=== PATIENT | female | born 1990 | race Caucasian/White ===

== ENCOUNTER 2019-12-13 10:52 | Emergency (ER) | payer OTHER, SELFPAY ==
--- NOTE | ~2019-12-13 | CT_ITS ---
EXAMINATION: CT abdomen pelvis wo con DATE: 12/13/2019 13:19 INDICATION: Left flank pain. Left lower quadrant abdominal pain. TECHNIQUE: Computed tomography (CT) of the abdomen and pelvis was performed without intravenous contr ast. Automated exposure control and iterative reconstruction technique were employed. The dose-length product was 1632.50 mGy-cm. COMPARISON: CT abdomen and pelvis 07/27/2016 FINDINGS: The visualized portions of the lung bases are clear without pneumonia or pleural effusion. The heart size is normal. No pericardial effusion. The liver and gallbladder are normal. There are ch anges of cholecystectomy. The pancreas, adrenal glands, and kidneys are normal. There is no urolithia sis. There are no dilated loops of bowel. The appendix is normal. There are no pathologically enlarge d lymph nodes. There is no free intraperitoneal fluid. There is mild thoracic spondylosis and moderat e lumbar spondylosis. There is mild chronic anterior wedging of multiple thoracic vertebral bodies. IMPRESSION: 1. No etiology for the patient's symptoms. Reviewed, dictated and finalized at location A. [employer]
[2019-12-13 11:23] VITALS: BP 151/88; PULSE 88; RESP 16; TEMP 37.2; O2SAT 98
[2019-12-13 11:37] LABS: Basophils Absolute Auto 0.1 K/mm3 (0.0-0.1); Basophils Percent Auto 0.7 % (0.2-1.2); Eosinophils Absolute Auto 0.2 K/mm3 (0-0.3); Hematocrit 43.4 % (37.0-47.0); Hemoglobin 13.9 g/dL (12.0-15.0); Immature Granulocyte Absolute 0.05 K/mm3 (0.00-0.031); Immature Granulocyte Percent A 0.5 % (0-0.5); Lymphocytes Absolute Auto 2.47 K/mm3 (0.9-3.2); Lymphocytes Percent Auto 24.4 % (18.3-44.2); Mean Corpuscular Hemoglobin 28.8 pg (26-34); Mean Corpuscular Volume 89.9 fl (80-100); Mean Platelet Volume 11.4 fl (7.4-10.4); Monocytes Absolute Auto 0.6 K/mm3 (0.1-0.6); Monocytes Percent Auto 6.1 % (2.6-8.5); Neutrophils Absolute Auto 6.7 K/mm3 (1.3-6.7); Neutrophils Percent Auto 66.3 % (45.5-73.1); Platelet Count Result 253 k/mm3 (150-375); Red Blood Count 4.83 M/mm3 (4.2-5.4); Red Cell Distribution Width 13.8 % (11.5-14.5); White Blood Count 10.1 K/mm3 (4.5-10.0)
[2019-12-13 11:49] LABS: Blood Urea Nitrogen 12 mg/dL (7-17); Calcium 8.9 mg/dL (8.4-10.2); Carbon Dioxide 23 mmol/L (22-30); Chloride 101 mmol/L (98-107); Estimated CRCL calculation 170 ml/min; Estimated Glomerular Filt Rate > 60; Glucose 95 mg/dL (65-105); Potassium 4.2 mmol/L (3.4-5.0); Sodium 138 mmol/L (137-145)
--- NOTE | 2019-12-13 11:56 | PC.NURSE ---
UA ordered at triage
[2019-12-13 12:15] LABS: Add Urine Microscopic? YES; Appearance Urine Cloudy (Clear); Bacteria Urine 2+ /hpf; Bilirubin Urine Negative (Negative); Blood Urine Negative (Negative); Color Urine Yellow (Yellow); Glucose Urine UA Negative (Negative); Ketones Urine Negative (Negative); Leukocyte Esterase Ur Negative LEU/UL (Negative); Mucus Urine Few /lpf; Nitrate Urine Negative (Negative); Protein Urine Negative (Negative); Specific Grav Ur 1.023 (1.001-1.035); Squamous Epithelial Cell Urine Many /hpf (Few); Urobilinogen Urine Negative mg/dL (<2.0)
[2019-12-13 13:00] VITALS: BP 148/77; PULSE 93; RESP 16; TEMP 37.1; O2SAT 99
--- NOTE | 2019-12-13 14:19 | ED.ABDPAIN ---
HPI - Abdominal Pain General Chief Complaint: Abdominal Pain Stated Complaint: flank pain Time Seen by Provider: 12/13/19 12:45 Source: patient Mode of arrival: ambulatory Limitations: no limitations History of Present Illness HPI narrative: Patient presents with chief complaint of left flank pain that radiates into the groin area over the past 4 days. Patient states she felt that it may have been a muscle but states it persisted she called her primary care provider and they instructed her to come to the emergency department for further evaluation. Patient states she has noted that her urine is a bit cloudy but she denies any dysuria or hematuria. Patient denies any vaginal bleeding or discharge. Patient denies due to abstinence. She also denies concern for venereal or sexually transmitted diseases. Patient denies fever, nausea, vomiting, diarrhea, constipation or abdominal pain. Related Data Allergies Allergy/AdvReac Type Severity Reaction Status Date / Time codeine Allergy Mild codeine Verified 12/13/19 14:05 ([id number]) ciprofloxacin Allergy Unknown ciprofloxacin Verified 12/13/19 14:05 ([id number]) Review of Systems Review of Systems: Narrative: CONSTITUTIONAL: Denies fever, chills, or sweats. EYES: Denies visual changes, redness, or discharge. ENT: Denies rhinorrhea, congestion, sore throat, or otalgia. CARDIOVASCULAR: Denies chest pain, palpitations, or edema. RESPIRATORY: Denies cough or dyspnea. GASTROINTESTINAL: Denies abdominal pain, nausea, vomiting, or diarrhea. GENITOURINARY: Reports left flank pain denies dysuria or hematuria. SKIN: Denies rash or itching. MUSCULOSKELETAL: Denies joint pain, or myalgia. NEUROLOGIC: Denies headache, numbness, dizziness, or weakness. PSYCHIATRIC: Denies anxiety or depression. [facility] Family History Family History (Updated 03/12/19 @ 10:47 by DOCTOR UNKNOWN) Father Hypertension Family history of congestive heart failure Mother Family history of chronic obstructive pulmonary disease Family history of emphysema Family history of type 2 diabetes mellitus Family history of congestive heart failure Other Family history of lung cancer Family history of malignant neoplasm of breast Family history of malignant neoplasm of cervix Social History Social History Smoking status: Never smoker Alcohol intake: current Gender identity (if verbalized by the patient): Female Exam Narrative: Exam Narrative: GENERAL: Well-appearing, well-nourished, and in no acute distress. HEAD: Normocephalic, atraumatic. EYES: PERRLA and EOMI. ENT: Nares clear, no rhinorrhea or epistaxis. Mucous membranes moist. Oropharynx without tonsillar hypertrophy exudate or other lesions. Bilateral TMs pearly main nonbulging NECK: Supple. No adenopathy or masses. No carotid bruits or JVD CHEST: Clear to auscultation. No respiratory distress. No wheezes rales or rhonchi HEART: Regular rate and rhythm. No murmur heard. Normal peripheral pulses. BACK: No vertebral point tenderness. No CVA tenderness. ABDOMEN: Soft, nontender with palpation, nondistended, normal active bowel sounds. EXTREMITIES: Normal range of motion. No edema. SKIN: Warm, dry, no rash. NEURO: No focal deficits. Alert and oriented x3. PSYCH: Normal mood and affect. Course Vital Signs Vital signs: Vital Signs Temperature 99.0 F 12/13/19 11:23 Pulse Rate 88 12/13/19 11:23 Respiratory Rate 16 12/13/19 11:23 Blood Pressure 151/88 H 12/13/19 11:23 Pulse Oximetry 98 12/13/19 11:23 Temperature 98.7 F 12/13/19 13:00 Pulse Rate 93 12/13/19 13:00 Respiratory Rate 16 12/13/19 13:00 Blood Pressure 148/77 H 12/13/19 13:00 Pulse Oximetry 99 12/13/19 13:00 MDM - Abdominal Pain MDM Narrative Medical decision making narrative: Discussed with patient there are no acute findings on her CT abdomen pelvis. Patient declines any pelvic exam to rule out STDs or pelvic ambreen
== END 2019-12-13 15:17 | disposition home or self-care (01) ==
PROVIDERS: Emergency Provider Emergency Medicine
DX: R10.9 Unspecified abdominal pain (principal)
CPT/HCPCS: 36415; 74176; 80048; 81001; 81025; 85025; 99284

== ENCOUNTER 2024-07-18 16:13 | Emergency (ER) | payer OTHER, SELFPAY ==
[2024-07-18 16:28] VITALS: BP 165/124; PULSE 110; RESP 16; TEMP 36.6; O2SAT 99
--- NOTE | 2024-07-18 16:38 | ED.DENTAL ---
HPI - Dental/Oral General Chief complaint: Dental/Oral Stated complaint: left side tooth pain Time Seen by Provider: 07/18/24 16:39 Source: patient, RN notes reviewed and old records reviewed Mode of arrival: ambulatory Limitations: no limitations History of Present Illness HPI Narrative: Patient with history of extremely poor dentition presents with complaints left upper/frontal dental infection. She reports that the infection has been present for 1-2 days. There is no associated face or neck swelling. She denies any fever, chills, sweats. She has been taking [id number] medication for her symptoms with poor relief. She denies any injury or trauma. She voices no other concerns or complaints at this time. Related Data Home Medications Medication Instructions Recorded Confirmed losartan 50 mg tablet mg 07/18/24 Allergies Allergy/AdvReac Type Severity Reaction Status Date / Time codeine Allergy Mild codeine Verified 01/27/24 15:47 ([id number]) ciprofloxacin Allergy Unknown ciprofloxacin Verified 01/27/24 15:47 ([id number]) Review of Systems Review of Systems: All systems reviewed & are unremarkable except as noted in HPI and below Constitutional: Constitutional: Reports no additional constitutional complaints ENT: Reports system reviewed and no additional complaints, except as documented and Reports as per HPI Cardiovascular: Cardiovascular: Reports as per HPI and Reports no additional cardiovascular complaints Respiratory: Respiratory: Reports as per HPI and Reports no additional respiratory complaints Gastrointestinal: Gastrointestinal: Reports no additional gastrointestinal complaints [facility] Family History Family History (System 01/27/24 @ 15:47 by Gabe Walter) Father Hypertension Family history of congestive heart failure Mother Family history of chronic obstructive pulmonary disease Family history of emphysema Family history of type 2 diabetes mellitus Family history of congestive heart failure Other Family history of lung cancer Family history of malignant neoplasm of breast Family history of malignant neoplasm of cervix Social History Social History (System 01/27/24 @ 15:47 by Gabe Walter) Smoking status: Never smoker Alcohol intake: current Gender identity (if verbalized by the patient): Female Exam Const: General: cooperative, no acute distress, alert and awake Orientation/consciousness: oriented to person, oriented to place and oriented to time HENMT: Head: normal to inspection Ears: TM's normal bilaterally Mouth: Yes moist mucous membranes Teeth and gingiva: abnormal tooth and associated gingiva, caries and poor dentition Throat: posterior oropharynx normal Resp: Effort & Inspection: normal respiratory effort and able to speak in complete sentences Auscultation: clear to auscultation bilaterally, no crackles, no rales, no rhonchi and no wheezes Cardio: Palpation: normal PMI Rate: regular rate Rhythm: regular rhythm Heart sounds: S1 normal heart sound present and S2 normal heart sound present Neuro: General: oriented to person, oriented to place and oriented to time Cranial nerves: Yes CN's II-XII intact bilaterally Psych: Appearance: grossly normal Thought process: Normal thought process present Insight: Good insight present (Psych) Judgement: Good judgement present (Psych) Course Course Level of Care: Express Care Visit Vital Signs Vital signs: Vital Signs Temperature 97.8 F 07/18/24 16:28 Pulse Rate 110 H 07/18/24 16:28 Respiratory Rate 16 07/18/24 16:28 Blood Pressure 165/124 H 07/18/24 16:28 Pulse Oximetry 99 07/18/24 16:28 Oxygen Delivery Room Air 07/18/24 16:28 Temperature 97.8 F 07/18/24 16:28 Pulse Rate 110 H 07/18/24 16:28 Respiratory Rate 16 07/18/24 16:28 Blood Pressure 138/96 H 07/18/24 16:54 Pulse Oximetry 99 07/18/24 16:28 Oxygen Delivery Room Air 07/18/24 16:28
[2024-07-18 16:54] VITALS: BP 138/96
== END 2024-07-18 16:57 | disposition home or self-care (01) ==
PROVIDERS: Emergency Provider Nurse Practitioner Family
DX: K04.7 Periapical abscess without sinus (principal)
CPT/HCPCS: 99213; G0463

== ENCOUNTER 2025-05-07 10:32 | Emergency (ER) | payer OTHER, SELFPAY ==
[2025-05-07 10:41] VITALS: BP 143/114; PULSE 125; RESP 20; TEMP 36.9; O2SAT 99
--- NOTE | 2025-05-07 11:34 | ED_ITS ---
HPI - Ear Problem General Chief complaint: Ear Stated complaint: left ear pain Time Seen by Provider: 05/07/25 10:45 Source: patient and RN notes reviewed Mode of arrival: ambulatory Limitations: no limitations History of Present Illness HPI Narrative: 35-year-old female presents Express Care complaining of left ear pain approximately 3-4 days. Patient said she recently went swimming over the weekend and put her head under water. Since then she has noticed left ear pain along with discharge coming from her left ear. Patient says she has a history of ear problems and scarring to her right ear. Patient denies any upper respiratory symptoms, fevers, chest pain, shortness of breath, palpitations, or any other symptoms. Patient has been using cotton swabs to collect the discharge from her ears. Related Data Home Medications ?Medication ?Instructions ?Recorded ?Confirmed ?Last Taken ?Type losartan 50 mg tablet mg 07/18/24 Unknown History amitriptyline 25 mg tablet mg 05/07/25 Unknown History ergocalciferol (vitamin D2) 1,250 05/07/25 Unknown History mcg (50,000 unit) capsule Allergies Allergy/AdvReac Type Severity Reaction Status Date / Time codeine Allergy Mild codeine Verified 05/07/25 10:49 ([id number]) ciprofloxacin Allergy Unknown ciprofloxacin Verified 05/07/25 10:49 ([id number]) Review of Systems Review of Systems: CONSTITUTIONAL: Denies fever, chills, or sweats. EYES: Denies visual changes, redness, or discharge. ENT: Denies rhinorrhea, congestion, sore throat. Positive for otalgia. CARDIOVASCULAR: Denies chest pain, palpitations, dizziness, lightheadedness, loss of consciousness or edema. RESPIRATORY: Denies cough, wheezing, or dyspnea. GASTROINTESTINAL: Denies abdominal pain, nausea, vomiting, or diarrhea. GENITOURINARY: Denies dysuria or hematuria. SKIN: Denies rash or itching. MUSCULOSKELETAL: Denies back pain, joint pain, or myalgia. NEUROLOGIC: Denies headache, numbness, or weakness. PSYCHIATRIC: Denies anxiety or depression. All other systems reviewed are negative, except as documented in HPI. [facility] Family History Family History Father Hypertension Family history of congestive heart failure Mother Family history of chronic obstructive pulmonary disease Family history of emphysema Family history of type 2 diabetes mellitus Family history of congestive heart failure Other Family history of lung cancer Family history of malignant neoplasm of breast Family history of malignant neoplasm of cervix Social History Social History Smoking status: Never smoker Alcohol intake: current Gender identity (if verbalized by the patient): Female Comments At the time of my signature, I reviewed and agree with the nursing past medical, surgical, social, and family history. There is no relevant family history pertinent to the patient complaint. Exam Narrative: GENERAL: This is a well-nourished, well-developed adult, in no apparent distress. They are non ill-appearing, nontoxic appearing. Patient is morbidly obese. HEAD: normocephalic, atraumatic. EYES: Sclera clear/white. Conjunctiva normal. Vision is grossly intact. Extraocular movements intact EARS: External ears normal, left tragal tenderness. Right Auditory canal with cerumen present and without drainage, left auditory canal erythematous with exudate. Right TM with scarring, no redness, swelling, without perforation. Unable to fully visualize left TM due to canal swelling, left TM appears intact and pearly main. Hearing grossly intact. No mastoid tenderness bilaterally. No ear protrusion. NOSE: External nose normal with no obvious nasal discharge, nasal turbinates without redness, no rhinorrhea. THROAT: Mucous membranes moist, posterior pharynx clear, without erythema or swelling. Uvula midline. NECK: Neck supple, non-tender without lymphadenopathy, masses or thyromegaly. CARDIOVASCULAR: Tachycardic rate and rhythm without murmurs, gallops, or rubs. RESPIRATORY: Clear to auscultation. Breath sounds equal bilaterally. No wheezes, rales, or rhonchi. SKIN: warm, Dry, intact with no suspicious lesions or rash, good texture and turgor. NEURO: awake, alert, and oriented to person, place and time. There were no obvious focal neurologic abnormalities. EXTREMITIES: No joint tenderness, effusion, or edema noted. Course Course Emergency Course: Portions of this record may have been created with voice recognition software Level of Care: Express Care Visit Vital Signs Vital signs: Vital Signs Temperature 98.5 F 05/07/25 10:41 Pulse Rate 125 H 05/07/25 10:41 Respiratory Rate 20 05/07/25 10:41 Blood Pressure 143/114 H 05/07/25 10:41 Pulse Oximetry 99 05/07/25 10:41 Oxygen Delivery Room Air 05/07/25 10:41 Temperature 98.5 F 05/07/25 10:41 Pulse Rate 125 H 05/07/25 10:41 Respiratory Rate 20 05/07/25 10:41 Blood Pressure 143/114 H 05/07/25 10:41 Pulse Oximetry 99 05/07/25 10:41 Oxygen Delivery Room Air 05/07/25 10:41 Reviewed Medical Decision Making MDM Narrative Medical decision making narrative: Patient likely a swimmer's ear the left auditory canal. Patient states she cannot use ciprofloxacin ear drops because she states they do not work did not resolve the previous ear infection. Patient denies any allergic reaction, rash, hives, swelling to the face, throat, or airway to the Cipro drops. Go ahead and treat with ofloxacin ear drops since the left TM is not well visualized to avoid any ototoxic drugs. Left TM appears intact but not fully visualized. Patient's blood pressure is elevated today, patient is asymptomatic with blood pressure. Advised close follow-up with PCP about blood pressure. Patient tachycardic as well with denies any chest pain, palpitations, shortness of breath, or any symptoms with it. Patient is hemodynamically stable, nontoxic appearing, and not in any apparent distress. ER precautions discussed with patient including but not limited to chest pain, shortness of breath, heart racing and chest, fevers, worsening left ear pain, redness and swelling behind left ear, headaches, or vision changes. Discussed physical exam findings. Advised supportive measures and signs/symptoms to go to the ER. Pt is appropriate for outpt treatment and f/u. Differential Diagnosis Differential Diagnosis: Otitis media, otitis externa, upper respiratory infection Vital Signs Vital Signs: Vital Signs Temperature 98.5 F 05/07/25 10:41 Pulse Rate 125 H 05/07/25 10:41 Respiratory Rate 05/07/25 10:41 Blood Pressure 143/114 H 05/07/25 10:41 Pulse Oximetry 99 05/07/25 10:41 Oxygen Delivery Room Air 05/07/25 10:41 Temperature 98.5 F 05/07/25 10:41 Pulse Rate 125 H 05/07/25 10:41 Respiratory Rate 05/07/25 10:41 Blood Pressure 143/114 H 05/07/25 10:41 Pulse Oximetry 99 05/07/25 10:41 Oxygen Delivery Room Air 05/07/25 10:41 Critical Care Time Critical Care Time Critical Care Time: No Discharge Plan Discharge Clinical Impression: Otitis externa Qualifiers: Otitis externa type: swimmer's ear Chronicity: acute Laterality: left Qualified Code(s): H60.332 - Swimmer's ear, left ear Patient Disposition: Home Condition: Stable Instructions: Antibiotic Form, Swimmer's Ear (ED) Additional Instructions: Swimmer's ear is an infection in the outer ear canal, which runs from your eardrum to the outside of your head. It's often caused by water that remains in your ear, creating a moist environment that encourages the growth of bacteria. Take antibiotic drops as directed. Tylenol and ibuprofen every 8 hours as needed to reduce fever, pain Avoid water or anything into the ear for one week Follow up with your personal physician for further evaluation and treatment within 3-5days. If your symptoms persist, change or worsen significantly, go to the emergency department for further evaluation. Patient Language: Setswana Prescriptions: New ofloxacin 0.3 % drops 10 drp LEFT EAR DAILY 7 Days Qty: 10 0RF No Action amitriptyline 25 mg tablet ergocalciferol (vitamin D2) 1,250 mcg (50,000 unit) capsule losartan 50 mg tablet Probiotic 100 billion cell capsule 1 cap PO BID Qty: 60 0RF Follow-up/Referrals: Juanjose,Jones [Other] Time of Disposition: 11:03
== END 2025-05-07 11:20 | disposition home or self-care (01) ==
DX: H60.332 Swimmer's ear, left ear (principal); I10 Essential (primary) hypertension
CPT/HCPCS: 99213; G0463